=== PATIENT | male | born 1995 | race African-American/Black ===

== ENCOUNTER 2019-09-08 11:47 | Emergency (ER) | payer BC ==
[2019-09-08] MEDS ORDERED: FAMOTIDINE 20 MG TABLET PO ONE (12:45)
[2019-09-08] MEDS ORDERED: ONDANSETRON 4 MG TAB.RAPDIS PO ONE (12:45)
--- NOTE | 2019-09-08 13:25 | ER Document Report ---
ED GI/ - General Chief Complaint: Nausea Stated Complaint: NAUSEA/VOMITING Time Seen by Provider: 09/08/19 12:23 Notes: CHIEF COMPLAINT: Vomiting today HPI: 24-year-old male presenting to the emergency department complaining of multiple episodes of vomiting today. Patient states he did drink beer and alcohol last night as well as smoke marijuana woke up today with nausea and a crampy type abdominal pain worse just prior to vomiting. ROS: See HPI - all other systems were reviewed and are otherwise negative Constitutional: no fever Eyes: no drainage, no blurred vision ENT: no runny nose, no sore throat Cardiovascular: no chest pain Resp: no SOB, no cough GI: + vomiting, no diarrhea, + crampy abdominal pain : no dysuria Integumentary: no rash Allergy: no hives Musculoskeletal: no extremity pain or swelling Neurological: no numbness/tingling, no weakness MEDICATIONS: I agree with the patient medications as charted by the RN. ALLERGIES: I agree with the allergies as charted by the RN. PAST MEDICAL HISTORY/PAST SURGICAL HISTORY: Reviewed and agree as charted by RN. SOCIAL HISTORY: Reviewed and agree as charted by RN. FAMILY HISTORY: No significant familial comorbid conditions directly related to patient complaint EXAM: Reviewed vital signs as charted by RN. CONSTITUTIONAL: Alert and oriented and responds appropriately to questions. Well-appearing; well-nourished HEAD: Normocephalic; atraumatic EYES: PERRL; Conjunctivae clear, sclerae non-icteric ENT: normal nose; no rhinorrhea; moist mucous membranes; pharynx without lesions noted, no uvula edema or deviation, no tonsillar hypertrophy, phonation normal NECK: Supple without meningismus; non-tender; no cervical lymphadenopathy, no masses CARD: RRR; no murmurs, no clicks, no rubs, no gallops; symmetric distal pulses RESP: Normal chest excursion without splinting or tachypnea; breath sounds clear and equal bilaterally; no wheezes, no rhonchi, no rales, pulse oximetry 98% on room air not hypoxic ABD/GI: Normal bowel sounds; non-distended; soft, non-tender, no rebound, no guarding; no palpable organomegaly or masses. BACK: The back appears normal and is non-tender to palpation, there is no CVA tenderness EXT: Normal ROM in all joints; non-tender to palpation; no cyanosis, no effusions, no edema SKIN: Normal color for age and race; warm; dry; good turgor; no acute lesions noted NEURO: Moves all extremities equally; Motor and sensory function intact PSYCH: The patient's mood and manner are appropriate. Grooming and personal hygiene are appropriate. MDM: 24-year-old male presenting with crampy abdominal pain with vomiting today after drinking last night. Has no reproducible abdominal pain on exam. Will give Zofran and Pepcid, p.o. challenge and reassess - Related Data Allergies/Adverse Reactions: No Known Allergies Allergy (Verified 09/08/19 12:18) Past Medical History - Social History Smoking Status: Current Every Day Smoker Drug Abuse: Marijuana Family History: Reviewed & Not Pertinent Patient has homicidal ideation: No Past Surgical History: Reports: Hx Orthopedic Surgery - Left leg Physical Exam - Vital signs Vitals: Temp Pulse Resp BP Pulse Ox 97.9 F 63 16 120/69 100 09/08/19 12:34 09/08/19 12:34 09/08/19 12:34 09/08/19 12:34 09/08/19 12:34 Course - Re-evaluation Re-evalutation: 09/08/19 13:25 Patient does admit to being at a green party gathering last night. Will COVID test 09/08/19 13:44 Patient is tolerating oral fluids per nursing. Will discharge home to follow-up with PCP - Vital Signs Vital signs: Temp Pulse Resp BP Pulse Ox 97.9 F 63 16 120/69 100 09/08/19 12:34 09/08/19 12:34 09/08/19 12:34 09/08/19 12:34 09/08/19 12:34 Discharge - Discharge Clinical Impression: Vomiting Qualifiers: Vomiting type: unspecified Vomiting Intractability: non-intractable Nausea presence: with nausea Qualified Code(s): R11.2 - Nausea with vomiting, unspecified Condition: Stable Disposition: HOME, SELF-CARE Additional Instructions: Take Zofran for any recurrent nausea or vomiting. Moderate your alcohol intake. Continue to push fluids today to rehydrate. Return for onset of abdominal pain or recurrent vomiting Prescriptions: Ondansetron [Zofran Odt 4 mg Tablet] 1 - 2 tab PO Q4H PRN #15 tab.rapdis PRN Reason: For Nausea/Vomiting Referrals: MACK STARK MD [ACTIVE STAFF] - Follow up as needed
[2019-09-08 14:48] VITALS: BP 122/72
== END 2019-09-08 14:48 | disposition home or self-care (01) ==
LOC: ER 11:47
DX: Z20.828 Contact with and (suspected) exposure to other viral communicable diseases (principal); R11.2 Nausea with vomiting, unspecified; F19.10 Other psychoactive substance abuse, uncomplicated; R10.9 Unspecified abdominal pain; F17.200 Nicotine dependence, unspecified, uncomplicated
CPT/HCPCS: 99283; 87635; S0119; C9803